=== PATIENT | female | born 1955 | race Caucasian/White ===

== ENCOUNTER 2016-07-11 08:49 | Day surgery (SDC) | payer BC ==
--- NOTE | ~2016-07-11 | EGD ---
EGD REPORT [facility] [address] [address] NAME: LIZY VILLEDA : 55 STATUS : REG [facility]#: [id number] AGE: 61 ADM/REG DATE : 07/11/16 MR#: [id number] REPORT SERV DATE: 07/11/16 DICTATED BY: KEVIN JOHNSNO DATE: 07/11/16 REPORT STATUS : Draft TRANSCRIBED BY: [facility] DATE: 07/11/16 Endoscopy Center Patient Name: Lizy Villeda Date of : 1955 Attending MD: KEVIN JOHNSON MD Procedure Date No Time: 07/11/2016 Procedure: Colonoscopy Indications: Screening for colorectal malignant neoplasm Referring MD: DAPHNE ROSS Medicines: Propofol per Anesthesia Complications: No immediate complications. Procedure: Pre-Anesthesia Assessment: - ASA Grade Assessment: II - A patient with mild systemic disease. After I obtained informed consent, the scope was passed under direct vision. Throughout the procedure, the patient's blood pressure, pulse, and oxygen saturations were monitored continuously. The CF [id number] was introduced through the anus and advanced to the cecum, identified by appendiceal orifice and ileocecal valve. The ileocecal valve was photographed. The entire colon was examined. The colonoscopy was performed without difficulty. The patient tolerated the procedure well. The quality of the bowel preparation was good. Findings: Two flat polyps were found in the descending colon. The polyps were 4 to 7 mm in size. These polyps were removed with a hot snare. Resection and retrieval were complete. Internal hemorrhoids were found during retroflexion and were Grade I (internal hemorrhoids that do not prolapse). The rest of the colon was normal. Impression: - Two 4 to 7 mm polyps in the descending colon. Resected and retrieved. - Internal hemorrhoids. Recommendation: - Discharge patient to home (ambulatory). - Repeat colonoscopy in 5 years for surveillance. Procedure Code(s): --- Professional --- 60710, Colonoscopy, flexible, proximal to splenic flexure; with removal of tumor(s), polyp(s), or other lesion(s) by snare technique EGD REPORT [facility] [address] [place] [address] NAME: LIZY VILLEDA : 55 STATUS : REG [facility] PAT#: [id number] AGE: 61 ADM/REG DATE : 07/11/16 MR#: [id number] REPORT SERV DATE: 07/11/16 DICTATED BY: KEVIN JOHNSON. DATE: 07/11/16 REPORT STATUS : Draft TRANSCRIBED BY: [employer] DATE: 07/11/16 Diagnosis Code(s): --- Professional --- D12.4, Benign neoplasm of descending colon K64.0, First degree hemorrhoids Z12.11, Encounter for screening for malignant neoplasm of colon CPT copyright 2013 [employer]. All rights reserved. The codes documented in this report are preliminary and upon rehab/pre vocational counselor review may be revised to meet current compliance requirements. Kevin Johnson MD KEVIN JOHNSON MD 07/11/2016 10:36 AM This report has been signed electronically. Number of Addenda: 0 Note Initiated On: 07/11/2016 9:38 AM Scope Withdrawal Time 0 hours 0 minutes 0 seconds [address] [place] [address]
[~2016-07-11 08:49] MED LIST: PRIN5 PO
== END 2016-07-11 23:59 | disposition home or self-care (01) ==
LOC: DMU 08:49
PROVIDERS: Internal Medicine Gastroenterology
PROC: 0DBM8ZZ Excision of Descending Colon, Via Natural or Artificial Opening Endoscopic (ICD-10-PCS; principal; 2016-07-11 10:30)
DX: Z12.11 Encounter for screening for malignant neoplasm of colon (principal); D12.4 Benign neoplasm of descending colon; K63.5 Polyp of colon; K64.0 First degree hemorrhoids; I10 Essential (primary) hypertension; Z90.89 Acquired absence of other organs; Z98.890 Other specified postprocedural states; Z79.899 Other long term (current) drug therapy
CPT/HCPCS: 88305